=== PATIENT | female | born 1975 | race Caucasian/White ===

== ENCOUNTER 2016-09-27 15:41 | Emergency (ER) | payer OTHER, SELFPAY | END 2016-09-27 16:04 | disposition home or self-care (01) | LOC: BURERS 15:41 | DX: S80.12XA Contusion of left lower leg, initial encounter (principal); E03.9 Hypothyroidism, unspecified; X58.XXXA Exposure to other specified factors, initial encounter | CPT/HCPCS: 99283 ==